=== PATIENT | male | born 1995 | race Two or more races ===

== ENCOUNTER 2023-06-21 13:50 | Emergency (ER) | payer OTHER ==
[~2023-06-21] VITALS: Ht 160 cm; Wt 81.7 kg
[2023-06-21 14:16] VITALS: BP 155/81
[2023-06-21] MEDS ORDERED: Acetaminophen 500 MG Tab PO ONE (15:50)
[2023-06-21] MEDS ORDERED: Ketorolac Tromethamine 10 MG Tab PO ONE (15:50)
[2023-06-21] MEDS ORDERED: Baclofen 10 MG Tab PO ONE (16:35)
== END 2023-06-21 16:45 | disposition home or self-care (01) ==
LOC: ER 13:50
DX: S33.5XXA Sprain of ligaments of lumbar spine, initial encounter (principal); M54.16 Radiculopathy, lumbar region; M54.50 Low back pain, unspecified; G89.29 Other chronic pain; X50.9XXA Other and unspecified overexertion or strenuous movements or postures, initial encounter; Y93.89 Activity, other specified
CPT/HCPCS: 99283; A9270